=== PATIENT | male | born 1975 | race Caucasian/White ===

== ENCOUNTER 2017-03-22 17:03 | Emergency (ER) | payer MEDICAID, SELFPAY ==
[~2017-03-22] VITALS: Ht 175.3 cm; Wt 110.4 kg
[2017-03-22] MEDS ORDERED: LIDOCAINE 1%-EPI 1:100K, 20ML SQ ONE (18:00)
[2017-03-22 18:48] VITALS: BP 132/81
== END 2017-03-22 18:55 | disposition home or self-care (01) ==
LOC: ED 18:49
DX: L03.115 Cellulitis of right lower limb (principal); F17.200 Nicotine dependence, unspecified, uncomplicated
CPT/HCPCS: 10060; 99283; J3490

== ENCOUNTER 2017-04-29 12:33 | Emergency (ER) | payer MEDICAID ==
[~2017-04-29] VITALS: Ht 175.3 cm; Wt 110.8 kg
[2017-04-29 12:35] VITALS: BP 145/88
== END 2017-04-29 13:18 | disposition home or self-care (01) ==
LOC: ED 13:08
DX: J01.00 Acute maxillary sinusitis, unspecified (principal)
CPT/HCPCS: 71020; 99284